=== PATIENT | female | born 1990 | race Caucasian/White ===

== ENCOUNTER 2021-04-29 08:46 | Day surgery (SDC) | payer BC ==
[2021-04-29] MEDS: Lactated Ringers 1,000 ML IV SCH ×2 (07:25→10:50)
[~2021-04-29 08:46] MED LIST: Bupivacaine 0.5% 10 ML SDV ONE; Dexamethasone 4 MG/ML 5 ML MDV ONE; Dextrose 5% in Water 100 ML ONE; HYDROmorphone 0.5 MG/0.5 ML Syringe IVPUSH PRN; Ketorolac 15 MG/ML SDV ONE; Lidocaine 1% 5 ML VIAL ONE; Lidocaine 1%/Sod Bicarbonate in NS 8.4% 1 ML Syringe IDERM PRN; Methylene Blue 50 MG/10 ML Ampule ONE; Midazolam 1 MG/ML 2 ML SDV ONE; Ondansetron 4 MG/2 ML SDV IVPUSH PRN; Ondansetron 4 MG/2 ML SDV ONE; Propofol 200 MG/20 ML SDV ONE; Rocuronium 50 MG/5 ML Vial ONE; Sodium Chloride 0.9% 10 ML Syringe FLUSH PRN; Sodium Chloride 0.9% 10 ML Syringe FLUSH SCH; ceFAZolin 1 GM Vial ONE; diphenhydrAMINE 50 MG/ML SDV ONE; fentaNYL 100 MCG/2 ML SDV IVPUSH PRN; fentaNYL 100 MCG/2 ML SDV ONE
[2021-04-29] MEDS ORDERED: fentaNYL 100 MCG/2 ML SDV ONE (09:13)
[2021-04-29] MEDS ORDERED: Bupivacaine 0.5% 30 ML SDV ONE (09:18)
[2021-04-29] MEDS ORDERED: ePHEDrine 50 MG/ML SDV ONE (09:21)
[2021-04-29] MEDS: fentaNYL 100 MCG/2 ML SDV IVPUSH PRN ×3 (10:15→10:37)
[2021-04-29] MEDS: HYDROmorphone 0.5 MG/0.5 ML Syringe IVPUSH PRN ×2 (10:17→10:30)
[2021-04-29] MEDS ORDERED: Albuterol 0.083% 2.5 MG/3 ML Neb Soln NEB PRN (10:27)
[2021-04-29] MEDS ORDERED: Ondansetron 4 MG/2 ML SDV IVPUSH PRN ×2 (10:27→10:42)
[2021-04-29] MEDS ORDERED: Haloperidol Lactate 5 MG/ML SDV IVPUSH ONE (10:45)
[2021-04-29] MEDS: traMADol 50 MG Tab PO PRN ×2 (12:15→13:35)
[2021-04-29] MEDS ORDERED: Ketorolac 30 MG/ML SDV IVPUSH ONE (15:00)
[2021-04-29] MEDS ORDERED: Ibuprofen 600 MG Tab PO PRN (21:00)
== END 2021-04-29 13:57 | disposition home or self-care (01) ==
LOC: JD.SDS 08:46
PROVIDERS: ATTEND Obstetrics & Gynecology
DX: K66.0 Peritoneal adhesions (postprocedural) (postinfection) (principal); S37.63XA Laceration of uterus, initial encounter; N88.8 Other specified noninflammatory disorders of cervix uteri; E11.9 Type 2 diabetes mellitus without complications; H54.7 Unspecified visual loss; F17.290 Nicotine dependence, other tobacco product, uncomplicated; J45.909 Unspecified asthma, uncomplicated; K21.9 Gastro-esophageal reflux disease without esophagitis; Z88.6 Allergy status to analgesic agent; Z88.5 Allergy status to narcotic agent; Z98.890 Other specified postprocedural states
CPT/HCPCS: 36415; 49329; 58350; 58520; 81025; 85025; A9270; J0690; J1100; J1170; J1200; J1630; J1885; J2250; J2405; J2704; J2710; J3010; J3490; J7120; 00840

== ENCOUNTER 2023-08-29 02:49 | Inpatient (IN) | payer BC ==
[2023-08-29] MEDS ORDERED: Sodium Chloride 0.9% 10 ML Syringe FLUSH PRN ×2 (03:20→15:38)
[2023-08-29] MEDS ORDERED: Ondansetron 4 MG/2 ML SDV IVPUSH PRN ×2 (03:20→16:18)
[2023-08-29] MEDS ORDERED: Lidocaine 1% 50 ML MDV INJECT PRN (03:20)
[2023-08-29] MEDS ORDERED: Calcium Carbonate 500 MG Tab.Chew PO PRN (03:20)
[2023-08-29] MEDS ORDERED: Oxytocin/Lactated Ringers 30 UNIT/500 ML BAG IV SCH (03:30)
[2023-08-29] MEDS: Lactated Ringers 1,000 ML IV SCH (03:31)
[2023-08-29 03:39] LABS: BASOPHILS PERCENT AUTO 0.1 % (0.0-1.0); EOSINOPHILS ABSOLUTE AUTO 0.1 K/mm3 (0.0-0.4); EOSINOPHILS PERCENT AUTO 0.4 % (0.0-6.0); HEMATOCRIT 36.4 % (37.0-47.0); IMMATURE GRAN ABSOLUTE AUTO 0.13 K/mm3 (0.00-0.05); IMMATURE GRAN PERCENT AUTO 0.8 % (0.0-0.4); LYMPHOCYTES ABSOLUTE AUTO 2.1 K/mm3 (1.0-4.8); LYMPHOCYTES PERCENT AUTO 12.2 % (24.0-44.0); MEAN CORPUSCULAR HEMOGLOBIN 27.8 pg (28.0-32.0); MEAN CORPUSCULAR VOLUME 84.5 fl (83.0-99.0); MEAN PLATELET VOLUME 11.7 fl (9.4-12.3); MONOCYTES ABSOLUTE AUTO 0.9 K/mm3 (0.0-0.8); MONOCYTES PERCENT AUTO 5.4 % (0.0-8.0); NEUTROPHILS ABSOLUTE AUTO 13.8 K/mm3 (1.8-7.7); NEUTROPHILS PERCENT AUTO 81.1 % (41.0-71.0); PLATELET COUNT,PLT 207 K/mm3 (150-400); RED BLOOD CELL COUNT 4.31 M/mm3 (4.10-5.30)
[2023-08-29] MEDS: Nalbuphine 10 MG/ML Syringe IVPUSH PRN (03:43)
[2023-08-29] MEDS ORDERED: ePHEDrine 50 MG/ML SDV IVPUSH PRN ×2 (04:02→19:03)
[2023-08-29] MEDS ORDERED: diphenhydrAMINE 50 MG/ML SDV IVPUSH PRN ×3 (04:02→19:03)
[2023-08-29] MEDS: fentaNYL 100 MCG/2 ML SDV EPIDUR PRN (04:16)
[2023-08-29] MEDS: Bupivacaine/fentaNYL/NS 100 ML Bag EPIDUR PRN (04:17)
[2023-08-29] MEDS ORDERED: Bupivacaine 0.25% 10 ML SDV ONE ×2 (07:00)
[2023-08-29] MEDS ORDERED: hydrOXYzine HCl 50 MG Tab PO PRN (09:32)
[2023-08-29] MEDS ORDERED: ceFAZolin 2 GM in Sodium Chloride 0.9% 50 ML IV ONE ×2 (15:38→15:56)
[2023-08-29] MEDS ORDERED: Ondansetron 4 MG/2 ML SDV ONE (15:50)
[2023-08-29] MEDS ORDERED: Lactated Ringers 1,000 ML ONE (15:50)
[2023-08-29] MEDS ORDERED: Morphine PF 10 MG/10 ML SDV ONE (15:50)
[2023-08-29] MEDS ORDERED: Ketorolac 30 MG/ML SDV ONE (15:50)
[2023-08-29] MEDS: Azithromycin 500 MG in Sodium Chloride 0.9% 250 ML IV ONE (16:02)
[2023-08-29] MEDS: Citric Acid/Sodium Citrate Solution 30 ML Cup PO ONE (16:05)
[2023-08-29] MEDS: Metoclopramide 10 MG/2 ML SDV IVPUSH ONE (16:05)
[2023-08-29] MEDS ORDERED: fentaNYL 100 MCG/2 ML SDV IVPUSH PRN (16:18)
[2023-08-29] MEDS ORDERED: Meperidine 50 MG/ML Vial IVPUSH PRN (16:18)
[2023-08-29] MEDS ORDERED: ceFAZolin 2 GM Vial ONE (16:36)
[2023-08-29] MEDS ORDERED: ePHEDrine 50 MG/ML SDV ONE (16:36)
[2023-08-29] MEDS ORDERED: Meperidine 50 MG/ML Vial ONE (17:30)
[2023-08-29] MEDS ORDERED: Phenylephrine 1% 10 MG/ML SDV ONE (17:33)
[2023-08-29] MEDS ORDERED: dexmedeTOMIDine HCl 200 MCG/2 ML SDV ONE (18:13)
[2023-08-29 19:02] LABS: HEMATOCRIT 29.6 % (37.0-47.0); HEMOGLOBIN 9.6 gm/dl (12.0-16.0); MEAN CORPUSCULAR HEMOGLOBIN 28.2 pg (28.0-32.0); MEAN CORPUSCULAR HGB CONC 32.4 g/dl (32.0-36.0); MEAN CORPUSCULAR VOLUME 86.8 fl (83.0-99.0); MEAN PLATELET VOLUME 11.8 fl (9.4-12.3); PLATELET COUNT,PLT 178 K/mm3 (150-400); RED BLOOD CELL COUNT 3.41 M/mm3 (4.10-5.30); WHITE BLOOD CELL COUNT,WBC 28.07 K/mm3 (3.9-11.3)
[2023-08-29] MEDS ORDERED: Acetaminophen 325 MG Tab PO PRN (19:03)
[2023-08-29] MEDS ORDERED: Naloxone 0.4 MG/ML SDV IVPUSH PRN (19:03)
[2023-08-29] MEDS ORDERED: Non-Formulary Medication 1 Each (Levalbuterol Tartrate [Xopenex Hfa] 15 GM Inhaler) PRN (19:17)
[2023-08-29] MEDS ORDERED: Albuterol 6.7 GM Inhaler INH PRN (19:25)
[2023-08-29 19:26] LABS: A/G RATIO 0.6 (1-2); ALBUMIN 1.8 g/dl (3.4-5.0); ANION GAP 15.5 (5-15); BILIRUBIN TOTAL 0.3 mg/dL (0.2-1.0); BUN/CREATININE RATIO 4.3 (14-18); CREATININE 0.7 mg/dL (0.55-1.02); EST CRCL DRUG DOSING (CG) 82.11 mL/min; POTASSIUM,K 3.5 mEq/L (3.5-5.1); PROTEIN TOTAL,TP 4.7 g/dl (6.4-8.2)
[2023-08-29 19:30] LABS: INR 0.98; PROTHROMBIN TIME 10.4 SECONDS (9.7-12.0)
[2023-08-29 19:31] LABS: PTT,PARTIAL THROMBOPLSTIN TIME 25.7 SECONDS (21.7-31.4)
[2023-08-29] MEDS: Dextrose 5%-Lactated Ringers 1,000 ML IV SCH (20:20)
[2023-08-29] MEDS ORDERED: FLUTICASONE PROPIONATE IH SCH (21:00)
[2023-08-29] MEDS: Mometasone Furoate HFA 100mcg/Puff 13 GM Inhaler INH SCH (21:08)
[2023-08-29] MEDS: Sodium Chloride 0.9% 10 ML Syringe FLUSH SCH ×2 (21:08)
[2023-08-29] MEDS ORDERED: Ibuprofen 800 MG Tab PO SCH (22:00)
[2023-08-30 00:36] LABS: BASOPHILS PERCENT AUTO 0.1 % (0.0-1.0); HEMATOCRIT 25.7 % (37.0-47.0); HEMOGLOBIN 8.3 gm/dl (12.0-16.0); IMMATURE GRAN ABSOLUTE AUTO 0.14 K/mm3 (0.00-0.05); IMMATURE GRAN PERCENT AUTO 0.6 % (0.0-0.4); LYMPHOCYTES ABSOLUTE AUTO 1.3 K/mm3 (1.0-4.8); LYMPHOCYTES PERCENT AUTO 5.5 % (24.0-44.0); MEAN CORPUSCULAR HEMOGLOBIN 27.9 pg (28.0-32.0); MEAN CORPUSCULAR HGB CONC 32.3 g/dl (32.0-36.0); MEAN CORPUSCULAR VOLUME 86.5 fl (83.0-99.0); MEAN PLATELET VOLUME 11.4 fl (9.4-12.3); MONOCYTES ABSOLUTE AUTO 1.1 K/mm3 (0.0-0.8); MONOCYTES PERCENT AUTO 4.9 % (0.0-8.0); NEUTROPHILS ABSOLUTE AUTO 20.2 K/mm3 (1.8-7.7); NEUTROPHILS PERCENT AUTO 88.9 % (41.0-71.0); PLATELET COUNT,PLT 158 K/mm3 (150-400); RED BLOOD CELL COUNT 2.97 M/mm3 (4.10-5.30); WHITE BLOOD CELL COUNT,WBC 22.76 K/mm3 (3.9-11.3)
[2023-08-30 01:02] LABS: SLIDE REVIEW ABNORMAL SMEAR
[2023-08-30] MEDS: Ibuprofen 800 MG Tab PO SCH (01:39)
[2023-08-30] MEDS: Acetaminophen/HYDROcodone 325-5 MG Tab PO PRN (01:56)
[2023-08-30] MEDS: Sennosides 8.6 MG Tab PO SCH (02:01)
[2023-08-30 06:18] LABS: HEMATOCRIT 24.2 % (37.0-47.0); HEMOGLOBIN 7.7 gm/dl (12.0-16.0); MEAN CORPUSCULAR HEMOGLOBIN 27.5 pg (28.0-32.0); MEAN CORPUSCULAR HGB CONC 31.8 g/dl (32.0-36.0); MEAN CORPUSCULAR VOLUME 86.4 fl (83.0-99.0); MEAN PLATELET VOLUME 11.4 fl (9.4-12.3); PLATELET COUNT,PLT 142 K/mm3 (150-400); WHITE BLOOD CELL COUNT,WBC 19.26 K/mm3 (3.9-11.3)
[2023-08-30] MEDS: Ferrous Sulfate 324 MG Tab.EC PO SCH (07:24)
[2023-08-30] MEDS: Acetaminophen 325 MG Tab PO SCH (08:00)
[2023-08-30] MEDS: Lactated Ringers 500 ML IV ONE (09:30)
[2023-08-30] MEDS: Simethicone 80 MG Tab.Chew PO PRN (10:00)
[2023-08-30] MEDS: oxyCODONE 5 MG Tab PO PRN (11:47)
[2023-08-30 12:25] LABS: HEMATOCRIT 23.3 % (37.0-47.0); HEMOGLOBIN 7.5 gm/dl (12.0-16.0); MEAN CORPUSCULAR HEMOGLOBIN 27.8 pg (28.0-32.0); MEAN CORPUSCULAR HGB CONC 32.2 g/dl (32.0-36.0); MEAN CORPUSCULAR VOLUME 86.3 fl (83.0-99.0); MEAN PLATELET VOLUME 11.9 fl (9.4-12.3); PLATELET COUNT,PLT 164 K/mm3 (150-400); WHITE BLOOD CELL COUNT,WBC 23.93 K/mm3 (3.9-11.3)
[2023-08-31 06:12] LABS: HEMATOCRIT 20.9 % (37.0-47.0); MEAN CORPUSCULAR HEMOGLOBIN 27.6 pg (28.0-32.0); MEAN CORPUSCULAR HGB CONC 32.5 g/dl (32.0-36.0); MEAN PLATELET VOLUME 11.7 fl (9.4-12.3); PLATELET COUNT,PLT 175 K/mm3 (150-400); RED BLOOD CELL COUNT 2.46 M/mm3 (4.10-5.30); WHITE BLOOD CELL COUNT,WBC 16.89 K/mm3 (3.9-11.3)
[2023-08-31 06:40] LABS: HEMOGLOBIN 6.8 gm/dl (12.0-16.0)
== END 2023-08-31 10:00 | disposition home or self-care (01) | DRG 540 ==
LOC: JD.OBCHECK 02:49 → JD.OB 02:56 → JD.OBCHECK 03:03 → OBSVTOIN 19:04 → JD.OB 19:05
PROVIDERS: ADMIT Obstetrics & Gynecology; ATTEND Obstetrics & Gynecology
PROC: 10907ZC Drainage of Amniotic Fluid, Therapeutic from Products of Conception, Via Natural or Artificial Opening (ICD-10-PCS; 2023-08-29)
PROC: 10H07YZ Insertion of Other Device into Products of Conception, Via Natural or Artificial Opening (ICD-10-PCS; 2023-08-29)
PROC: 0DNU0ZZ Release Omentum, Open Approach (ICD-10-PCS; 2023-08-29)
PROC: 10D00Z1 Extraction of Products of Conception, Low, Open Approach (ICD-10-PCS; principal; 2023-08-29 16:55)
DX: O34.211 Maternal care for low transverse scar from previous cesarean delivery (principal); O99.02 Anemia complicating childbirth; D62 Acute posthemorrhagic anemia; O99.52 Diseases of the respiratory system complicating childbirth; J45.909 Unspecified asthma, uncomplicated; Z37.0 Single live birth; Z3A.37 37 weeks gestation of pregnancy; O76 Abnormality in fetal heart rate and rhythm complicating labor and delivery; O72.2 Delayed and secondary postpartum hemorrhage
CPT/HCPCS: 01967; 01968; 36415; 51702; 59025; 80053; 85025; 85027; 85384; 85610; 85730; 86592; 86850; 86900; 86901; 94760; 94762; A9270-GY; J0456; J0665; J0690; J1885; J2175; J2274; J2300; J2371; J2405; J2765; J3010; J3490; J7050; J7120; J7121